=== PATIENT | male | born 1995 | race African-American/Black ===

== ENCOUNTER 2018-12-15 15:48 | Emergency (ER) | payer MEDICAID, OTHER ==
[~2018-12-15] VITALS: Ht 172.7 cm; Wt 61.0 kg
[2018-12-15] MEDS ORDERED: SODIUM CHLORIDE 0.9% 1,000 ML IV ONE (18:13)
[2018-12-15] MEDS ORDERED: KETOROLAC 30MG/ML VIAL IV STA (18:13)
[2018-12-15] MEDS ORDERED: ONDANSETRON HCL 4MG/2ML INJ IV STA (18:13)
[2018-12-15 19:00] LABS: HEMATOCRIT. 50.1 % (42.0-52.0); HEMOGLOBIN. 16.4 g/dL (14.0-18.0); MEAN CORPUSCULAR HEMOGLOBIN 26.6 pg (28.0-32.0); MEAN PLATELET VOLUME 9.3 fl (7.4-10.4); PLATELET 211 x1000/uL (130-400); RED BLOOD CELL COUNT 6.18 mill/uL (4.7-6.1)
[2018-12-15 19:07] LABS: CHLORIDE 107 mEq/L (98-107)
[2018-12-15 19:10] LABS: ETHANOL BLOOD < 10 mg/dL
[2018-12-15 19:43] LABS: PLATELET ESTIMATE NORMAL
[2018-12-15 21:30] VITALS: BP 116/77
== END 2018-12-15 21:31 | disposition home or self-care (01) ==
LOC: ER 15:48
DX: R07.89 Other chest pain (principal); J40 Bronchitis, not specified as acute or chronic
CPT/HCPCS: 36415; 71045; 71250; 80053; 80320; 83690; 83880; 84484; 85025; 85379; 93005; 96374; 96375; 99284; J1885; J2405; J7030; G0480